=== PATIENT | female | born 1940 | race Caucasian/White ===

== ENCOUNTER 2017-03-23 16:39 | Emergency (ER) | payer MEDICARE, BC ==
[~2017-03-23 16:39] MED LIST: ALLEGRA180 PO; CALTRA600D PO; CELEBREX2 PO; DIOVAN HCT160 MG/25 PO; DURICEF PO; FISH-EPA1000 MG PO; ISOPTINSR PO; JANTOVEN1 MG PO; JANTOVEN6 MG PO; Jantoven PO; LORTAB 5 PO; LOTEMAX OPH SUSP5 ML OPH; MONODOX100 MG PO; MULTIPLE VIT PO; OSTEO BI FLEX PO; PCET PO; PRAVACHOL40 MG PO; PRILO PO; PRILOSEC40 MG PO; PROAIR HFA INH; RYTHMOL150 MG PO; SYN125 PO; SYNTHROID137 MCG PO; TAMBOCOR PO; V180SR PO; VITAMIN D1000 UNI1 PO; ZOCOR40 PO; ZOL50 PO; [UNRECOGNIZED DRUG - OTHER] OP
[2017-03-23 19:30] LABS: INTERNATIONAL NORMAL RATI 2.4 UNITS (-)
[2017-03-23 19:31] LABS: PARTIAL THROMBO TIME 43.2 SEC (22.5-37.2)
== END 2017-03-23 20:03 | disposition home or self-care (01) ==
LOC: ER 16:39
PROVIDERS: Nurse Practitioner Acute Care
DX: S00.03XA Contusion of scalp, initial encounter (principal); K21.9 Gastro-esophageal reflux disease without esophagitis; E03.9 Hypothyroidism, unspecified; I48.91 Unspecified atrial fibrillation; I10 Essential (primary) hypertension; Z88.5 Allergy status to narcotic agent; Z88.8 Allergy status to other drugs, medicaments and biological substances; Z79.899 Other long term (current) drug therapy; W19.XXXA Unspecified fall, initial encounter
CPT/HCPCS: 70450; 85610; 85730; 99284